=== PATIENT | female | born 1985 | race Caucasian/White ===

== ENCOUNTER 2017-03-30 12:05 | Emergency (ER) | payer MEDICAID ==
[~2017-03-30] VITALS: Ht 157.5 cm; Wt 71.0 kg
[2017-03-30] MEDS ORDERED: ACETAMINOPHEN 325MG TABLET PO ONE (12:45)
[2017-03-30 12:55] LABS: BASOPHILS % 0.5 % (0.0-2.0); EOSINOPHILS % 0.8 % (0.0-5.0); HEMATOCRIT. 36.4 % (36.0-48.0); HEMOGLOBIN. 12.4 g/dL (12.0-16.0); LYMPHOCYTES % 17.8 % (20.0-50.0); MEAN CORPUSCULAR HEMOGLOBIN 29.4 pg (28.0-32.0); MEAN CORPUSCULAR VOLUME 86.3 fL (81.0-99.0); MEAN PLATELET VOLUME 8.1 fl (7.4-10.4); MONOCYTES % 6.7 % (2.0-8.0); NEUTROPHILS % 74.2 % (40.0-76.0); PLATELET 319 x1000/uL (130-400); RED BLOOD CELL COUNT 4.21 mill/uL (4.2-5.4)
[2017-03-30 13:01] LABS: CHLORIDE 106 mEq/L (98-107)
[2017-03-30 13:09] LABS: CARBON DIOXIDE 24 mEq/L (21-32)
[2017-03-30 13:24] LABS: B-HCG QUANTITATIVE 90244 mIU/mL (<3)
[2017-03-30 15:12] LABS: CLARITY URINE CLEAR (CLEAR); COLOR URINE YELLOW (YELLOW); GLUCOSE URINE NEGATIVE (NEGATIVE); KETONES URINE 1+ (NEGATIVE); LEUKOCYTE ESTERASE URINE TRACE (NEGATIVE); NITRITE URINE NEGATIVE (NEGATIVE); OCCULT BLOOD URINE NEGATIVE (NEGATIVE); PROTEIN URINE NEGATIVE (NEGATIVE); SPECIFIC GRAVITY URINE 1.007 (1.005-1.030); UROBILINOGEN URINE 0.2 E.U./dL (0.2-1.0)
[2017-03-30 15:49] VITALS: BP 110/72
== END 2017-03-30 15:53 | disposition home or self-care (01) ==
LOC: ER 12:17
DX: O26.891 Other specified pregnancy related conditions, first trimester (principal); O23.41 Unspecified infection of urinary tract in pregnancy, first trimester; O99.331 Smoking (tobacco) complicating pregnancy, first trimester; F17.200 Nicotine dependence, unspecified, uncomplicated; Z3A.09 9 weeks gestation of pregnancy
CPT/HCPCS: 36415; 76801; 76857; 80048; 81001; 81025; 84702; 85025; 86850; 86900; 99285

== ENCOUNTER 2017-07-21 22:01 | Observation (INO) | payer OTHER ==
[~2017-07-21] VITALS: Ht 157.5 cm; Wt 72.6 kg
[2017-07-21] MEDS ORDERED: PNV1TABL76 PO (22:46)
[2017-07-21 23:01] LABS: CLARITY URINE TURBID (CLEAR); COLOR URINE YELLOW (YELLOW); GLUCOSE URINE NEGATIVE (NEGATIVE); KETONES URINE NEGATIVE (NEGATIVE); LEUKOCYTE ESTERASE URINE 3+ (NEGATIVE); NITRITE URINE NEGATIVE (NEGATIVE); OCCULT BLOOD URINE NEGATIVE (NEGATIVE); PROTEIN URINE NEGATIVE (NEGATIVE); SPECIFIC GRAVITY URINE 1.021 (1.005-1.030); UROBILINOGEN URINE 0.2 E.U./dL (0.2-1.0)
[2017-07-21] MEDS ORDERED: CEFAZOLIN 2,000 MG in DEXT 5% WATER 100 ML IV NR (23:30)
[2017-07-21] MEDS ORDERED: TERBUTALINE SULFATE 1MG/ML VIAL SUBCUT NR (23:30)
[2017-07-21] MEDS ORDERED: LACTATED RINGERS 1,000 ML IV SCH (23:30)
[2017-07-21] MEDS ORDERED: ACETAMINOPHEN 500MG TABLET PO NR (23:30)
== END 2017-07-22 02:15 | disposition home or self-care (01) ==
LOC: L&D 22:01
PROVIDERS: ADMIT Obstetrics & Gynecology Obstetrics; ATTEND Obstetrics & Gynecology Obstetrics
DX: O26.892 Other specified pregnancy related conditions, second trimester (principal); R10.2 Pelvic and perineal pain; R30.0 Dysuria; R35.0 Frequency of micturition; Z3A.26 26 weeks gestation of pregnancy
CPT/HCPCS: 81001; 87086; 96365; 96366; 96372; 99281; G0378; J0690; J3105; J7120; 59412; 96360; 96361; J7060

== ENCOUNTER 2023-12-24 11:42 | Emergency (ER) | payer MEDICAID, OTHER ==
[~2023-12-24] VITALS: Ht 162.6 cm; Wt 64.0 kg
[~2023-12-24 11:42] MED LIST: PNV1TABL76 PO
[2023-12-24 11:49] VITALS: TEMP 98.4; O2SAT 100
[2023-12-24 12:00] VITALS: BP 123/70; PULSE 82; RESP 16
[2023-12-24] MEDS: ONDANSETRON 4MG ODT PO ONE (12:00)
[2023-12-24] MEDS: HYDROCODONE/ACETAMINOPHEN 5/325MG TABLET PO ONE (12:00)
[2023-12-24] MEDS ORDERED: IBUP-2029 MT (12:37)
== END 2023-12-24 12:44 | disposition home or self-care (01) ==
LOC: ER 11:42
DX: S93.402A Sprain of unspecified ligament of left ankle, initial encounter (principal); S93.602A Unspecified sprain of left foot, initial encounter; W18.39XA Other fall on same level, initial encounter; Y93.89 Activity, other specified; Y92.89 Other specified places as the place of occurrence of the external cause; Y99.8 Other external cause status
CPT/HCPCS: 73610; 73630; 29515; 99284; Q0162; Z7610

== ENCOUNTER 2024-07-16 09:34 | Emergency (ER) | payer MEDICAID ==
[~2024-07-16] VITALS: Ht 157.5 cm; Wt 64.0 kg
[~2024-07-16 09:34] MED LIST changes: +IBUP-2029 MT
[2024-07-16 09:36] VITALS: O2SAT 95
[2024-07-16 09:45] VITALS: BP 144/96; PULSE 78; RESP 16; TEMP 98.3; O2SAT 100
[2024-07-16] MEDS ORDERED: IBUPROFEN 600MG TABLET PO STA (10:46)
== END 2024-07-16 10:59 | disposition left against medical advice (07) ==
LOC: ER 09:43
DX: R00.2 Palpitations (principal); R07.89 Other chest pain
CPT/HCPCS: 93005; 99283